=== PATIENT | female | born 1980 | race Caucasian/White ===

== ENCOUNTER → 2017-11-16 | Outpatient (CLI) | payer BC ==
--- NOTE | 2017-11-18 08:37 | MAM ---
EXAM DESCRIPTION: 3D Screening BILATERAL : Digital Mammography. CLINICAL HISTORY: 37 years Female SCREENING . No complaints. No family history of breast cancer. Postmenopausal. No HRT. COMPARISON: None available. No prior reports available. TECHNIQUE: Bilateral CC and MLO projection full-field images, 3-D tomosynthesis digital mammographic technique. Also bilateral synthesized CC/ MLO full-field images. CAD not utilized. FINDINGS: The breast parenchymal density pattern is: Scattered areas of fibroglandular density. No skin thickening or nipple retraction bilateral solitary microcalcifications. No focal, stellate mass or density, focal asymmetry , and no suspicious microcalcifications bilaterally. IMPRESSION: BI-RADS CATEGORY: 2 - BENIGN FINDINGS. FOLLOW UP: Routine digital bilateral screening, one year interval from October 2017. Written communication explaining the IMPRESSION and follow-up, will be mailed to the patient and referring health care provider. According to the [employer], yearly mammograms are recommended starting at age 40 and continuing as long as a woman is in good health. Any breast change noted on a breast self-exam should be reported promptly to the patient's healthcare provider. Breast MRI is recommended for women with an approximately 20-25% or greater lifetime risk of breast cancer, including women with a strong family history of breast or ovarian cancer and women who have been treated for Hodgkin's disease. A negative mammographic report should not delay tissue diagnosis in patients with significant clinical history or physical findings. Extremely dense breast tissue limits the sensitivity of digital mammography. Electronically signed by: Nabeel Montoya MD 11/18/2017 8:36 AM [employer]
== END ==
LOC: LAB.O 11:04
PROVIDERS: ATTEND Family Medicine
DX: Z12.31 Encounter for screening mammogram for malignant neoplasm of breast (principal); N95.1 Menopausal and female climacteric states; E03.4 Atrophy of thyroid (acquired); E34.9 Endocrine disorder, unspecified